=== PATIENT | female | born 1955 | race Hispanic/Latino ===

== ENCOUNTER 2020-12-31 13:00 | Inpatient (IN) | payer MEDICARE ==
[2021-01-04] MEDS ORDERED: Midazolam HCl 2 mg/2 ml Vial ONE (06:30)
[2021-01-04] MEDS ORDERED: Fentanyl 100 MCG/2 ML VIAL ONE (06:30)
[2021-01-04] MEDS ORDERED: Sodium Chloride 0.9% 100 ML ONE (07:03)
[2021-01-04] MEDS ORDERED: Tranexamic Acid 1,000 MG/10 ML VIAL ONE (07:03)
[2021-01-04] MEDS ORDERED: Vancomycin 1.5 GRAM/300 ML BAG ONE (07:03)
[2021-01-04] MEDS ORDERED: Ropivacaine 2% HCl/PF (20 MG/10 ML VIAL) ONE (07:17)
[2021-01-04] MEDS ORDERED: Ondansetron PF 4 MG/2 ML Vial ONE (07:17)
[2021-01-04] MEDS ORDERED: PROPOFOL 200 MG/20 ML VIAL ONE (07:17)
[2021-01-04] MEDS ORDERED: Bupivacaine HCl 0.5%/Epinephrine 1:200,000/PF 30 ml Vial ONE (07:17)
[2021-01-04] MEDS ORDERED: Ketorolac Tromethamine 30 MG/ML VIAL ONE (07:17)
[2021-01-04] MEDS ORDERED: Fentanyl 100 MCG/2 ML VIAL IV PRN (07:22)
[2021-01-04] MEDS ORDERED: HYDROcodone/Acetaminophen 10/325 mg Tablet PO PRN ×3 (07:30→09:07)
[2021-01-04] MEDS ORDERED: Promethazine HCl 25 MG/ML VIAL IM PRN ×2 (07:30→09:07)
[2021-01-04] MEDS ORDERED: Ondansetron PF 4 MG/2 ML Vial IVP PRN ×2 (07:30→09:07)
[2021-01-04] MEDS ORDERED: Zolpidem Tartrate 5 MG TAB PO PRN ×2 (07:30→09:07)
[2021-01-04] MEDS ORDERED: traMADol HCl 50 MG TAB PO PRN ×3 (07:30→09:07)
[2021-01-04] MEDS ORDERED: Ropivacaine HCl/PF 250 ML in Premix Bag 1 BAG NERVE BLCK SCH (07:30)
[2021-01-04] MEDS ORDERED: Bupivacaine 0.25% HCL 30 ML VIAL ONE (08:17)
[2021-01-04] MEDS ORDERED: EPINEPHrine 1 MG/ML AMP ONE (08:17)
[2021-01-04] MEDS ORDERED: diphenhydrAMINE 25 MG CAP PO PRN (09:07)
[2021-01-04] MEDS ORDERED: Morphine 2 MG/ML VIAL SLOW IVP PRN (09:07)
[2021-01-04] MEDS ORDERED: Fentanyl 100 MCG/2 ML VIAL SLOW IVP PRN ×2 (09:07)
[2021-01-04] MEDS ORDERED: Morphine 4 MG/ML VIAL SLOW IVP PRN (09:07)
[2021-01-04] MEDS ORDERED: Acetaminophen 325 MG TAB PO PRN (09:07)
[2021-01-04] MEDS: Sodium Chloride 0.9% 1,000 ML IV SCH ×2 (11:45→21:27)
[2021-01-04] MEDS: Ketorolac Tromethamine 30 MG/ML VIAL IVP SCH ×2 (12:11→18:19)
[2021-01-04 13:42] VITALS: BMI 30.9
[2021-01-04] MEDS ORDERED: Melatonin 3 MG TAB PO PRN (13:53)
[2021-01-04] MEDS ORDERED: Dextrose 50% Abboject 50 ML SYRINGE SLOW IVP PRN (13:55)
[2021-01-04] MEDS ORDERED: Dextrose 5% in Water 1,000 ML IV PRN (13:55)
[2021-01-04] MEDS ORDERED: hydrALAZINE 20 MG/ML VIAL SLOW IVP PRN (13:55)
[2021-01-04] MEDS ORDERED: HumaLOG 300 UNITS/3 ML VIAL SC PRN (13:55)
[2021-01-04] MEDS: CEFAZOLIN 2 GM in Premix Bag 1 BAG IVPB SCH (16:32)
[2021-01-04] MEDS: metFORMIN 500 MG TAB PO SCH (16:32)
[2021-01-04] MEDS: HYDROcodone/Acetaminophen 10/325 mg Tablet PO PRN (16:33)
[2021-01-04] MEDS ORDERED: Vancomycin 1.5 GRAM/300 ML BAG 1.5 GM in Premix Bag 1 BAG IVPB SCH (20:00)
[2021-01-04] MEDS: levETIRAcetam 500 MG TAB PO SCH (21:25)
[2021-01-04] MEDS: CLOBAZAM 10 MG PO SCH (21:25)
[2021-01-04] MEDS: Lacosamide 50 mg Tablet PO SCH (21:27)
[2021-01-04] MEDS: Aspirin 81 mg Enteric Coated Tablet PO SCH (21:27)
[2021-01-04] MEDS: Simvastatin 5 MG TAB PO SCH (21:27)
[2021-01-05] MEDS: Ketorolac Tromethamine 30 MG/ML VIAL IVP SCH ×5 (00:49→23:16)
[2021-01-05] MEDS: CEFAZOLIN 2 GM in Premix Bag 1 BAG IVPB SCH (00:50)
[2021-01-05] MEDS: Sodium Chloride 0.9% 1,000 ML IV SCH ×3 (05:58→23:16)
[2021-01-05 05:59] LABS: Hemoglobin 12.8 g/dL (12.0-16.0); Mean Corpuscular HGB CONC 33.6 g/dL (32.0-36.0); Mean Corpuscular Volume 95.4 fL (78.0-98.0); Mean Platelet Volume 10.2 fL (7.4-10.4); RBC Distribution Width 12.2 % (11.5-14.5); White Blood Cell (WBC) Count 5.7 thou/uL (4.8-10.8)
[2021-01-05 06:02] LABS: Anion Gap 14 mmol/L (10-20); BUN (Urea Nitrogen) 13 mg/dL (9.8-20.1); Band 8 % (5-11); Calc. Creatinine Clearance 128 mL/min (70-130); Calcium 7.6 mg/dL (7.8-10.44); Carbon Dioxide 23 mmol/L (23-31); Chloride 105 mmol/L (98-107); Eosinophils 1 % (0-10); Glucose 108 mg/dL (80-115); Lymphocytes 49 % (21-51); MDiff Complete? YES; Monocytes 9 % (0-10); Neutrophil 31 % (42-75); Platelet Morphology Comment PLT clumps seen-ADEQ; Potassium 4.3 mmol/L (3.5-5.1); RBC Morphology Normal; Reactive Lymphocytes 2 % (0-10); Sodium 138 mmol/L (136-145)
[2021-01-05 08:44] LABS: Platelet Count 111 thou/uL (130-400)
[2021-01-05 09:15] LABS: EPI 157 SEC (67-199); Platelet Count 111 thou/uL (130-400)
[2021-01-05] MEDS: Multivitamin W/ Minerals 1 TAB PO SCH (09:39)
[2021-01-05] MEDS: Senokot S 8.6-50 MG TAB PO SCH ×2 (09:39→21:23)
[2021-01-05] MEDS: Ferrous Gluconate 324 MG TAB PO SCH ×2 (09:40→21:23)
[2021-01-05] MEDS: Aspirin 81 mg Enteric Coated Tablet PO SCH ×2 (09:40→21:23)
[2021-01-05] MEDS: levETIRAcetam 500 MG TAB PO SCH ×2 (09:40→21:23)
[2021-01-05] MEDS: Empagliflozin 25 MG TAB PO SCH (09:41)
[2021-01-05] MEDS: metFORMIN 500 MG TAB PO SCH ×2 (09:41→16:29)
[2021-01-05] MEDS: Lacosamide 50 mg Tablet PO SCH ×2 (09:42→21:23)
[2021-01-05] MEDS: CLOBAZAM 10 MG PO SCH ×2 (10:22→21:23)
[2021-01-05] MEDS: HumaLOG 300 UNITS/3 ML VIAL SC PRN (16:28)
[2021-01-05] MEDS: HYDROcodone/Acetaminophen 10/325 mg Tablet PO PRN (18:27)
[2021-01-05] MEDS: Simvastatin 5 MG TAB PO SCH (21:23)
[2021-01-06] MEDS: Ketorolac Tromethamine 30 MG/ML VIAL IVP SCH (05:17)
[2021-01-06 06:01] LABS: #Eosinphils 0.1 thou/uL (0.0-0.7); #Neutrophils 4.1 thou/uL (1.40-6.50); %Basophils 0.5 % (0.0-1.0); %Eosinophils 1.5 % (0.0-10.0); %Lymphocytes 28.3 % (21.0-51.0); %Monocytes 13.5 % (0.0-10.0); %Neutrophils 56.2 % (42.0-75.0); Hemoglobin 12.5 g/dL (12.0-16.0); Mean Corpuscular HGB CONC 33.6 g/dL (32.0-36.0); Mean Corpuscular Hemoglobin 31.9 pg (27.0-31.0); Mean Corpuscular Volume 94.9 fL (78.0-98.0); Mean Platelet Volume 8.7 fL (7.4-10.4); Platelet Count 107 thou/uL (130-400); RBC Distribution Width 12.1 % (11.5-14.5); Red Blood Cell (RBC) Count 3.91 mill/uL (4.20-5.40); White Blood Cell (WBC) Count 7.2 thou/uL (4.8-10.8)
[2021-01-06 06:15] LABS: Anion Gap 12 mmol/L (10-20); BUN (Urea Nitrogen) 13 mg/dL (9.8-20.1); Calc. Creatinine Clearance 131 mL/min (70-130); Carbon Dioxide 25 mmol/L (23-31); Chloride 105 mmol/L (98-107); Glucose 118 mg/dL (80-115); Potassium 3.9 mmol/L (3.5-5.1); Sodium 138 mmol/L (136-145)
[2021-01-06] MEDS: Senokot S 8.6-50 MG TAB PO SCH (08:51)
[2021-01-06] MEDS: Empagliflozin 25 MG TAB PO SCH (08:52)
[2021-01-06] MEDS: metFORMIN 500 MG TAB PO SCH (08:52)
[2021-01-06] MEDS: levETIRAcetam 500 MG TAB PO SCH (08:52)
[2021-01-06] MEDS: Aspirin 81 mg Enteric Coated Tablet PO SCH (08:52)
[2021-01-06] MEDS: Ferrous Gluconate 324 MG TAB PO SCH (08:52)
[2021-01-06] MEDS: Lacosamide 50 mg Tablet PO SCH (08:53)
[2021-01-06] MEDS: Multivitamin W/ Minerals 1 TAB PO SCH (08:53)
[2021-01-06] MEDS: HYDROcodone/Acetaminophen 10/325 mg Tablet PO PRN (08:56)
[2021-01-06] MEDS: CLOBAZAM 10 MG PO SCH (09:05)
[2021-01-06] MEDS: Sodium Chloride 0.9% 1,000 ML IV SCH (10:07)
[2021-01-06 11:39] VITALS: BP 109/73; TEMP 98.9
[2021-01-06] MEDS: HumaLOG 300 UNITS/3 ML VIAL SC PRN (12:39)
== END 2021-01-06 16:00 | disposition home or self-care (01) | DRG 470 ==
LOC: SURG A 01-04 05:21
PROVIDERS: ADMIT Orthopaedic Surgery; ATTEND Orthopaedic Surgery
PROC: 0SRC0J9 Replacement of Right Knee Joint with Synthetic Substitute, Cemented, Open Approach (ICD-10-PCS; principal; 2021-01-04)
DX: M17.11 Unilateral primary osteoarthritis, right knee (principal); D69.3 Immune thrombocytopenic purpura; Z20.822 Contact with and (suspected) exposure to COVID-19; G40.909 Epilepsy, unspecified, not intractable, without status epilepticus; Z96.652 Presence of left artificial knee joint; E11.9 Type 2 diabetes mellitus without complications; F41.9 Anxiety disorder, unspecified; E78.5 Hyperlipidemia, unspecified; I10 Essential (primary) hypertension; Z98.51 Tubal ligation status; Z90.49 Acquired absence of other specified parts of digestive tract; Z83.3 Family history of diabetes mellitus; Z79.899 Other long term (current) drug therapy; Z79.84 Long term (current) use of oral hypoglycemic drugs
CPT/HCPCS: 36415; 36416; 80048; 85025; 85576; C1713; C1776; J0171; J0690; J1815; J1885; J2250; J2405; J2704; J2795; J3010; J3370; J3490; S0020